=== PATIENT | male | born 1945 ===

== ENCOUNTER → 2022-02-08 13:39 | Outpatient (BNVA) | payer MEDICARE, SELFPAY | PROVIDERS: PCP Family Medicine; Referring Provider Family Medicine; Visit Provider Psychiatry & Neurology Neurology | DX: G51.4 Facial myokymia (principal); R48.2 Apraxia; R47.01 Aphasia; F01.50 Vascular dementia, unspecified severity, without behavioral disturbance, psychotic disturbance, mood disturbance, and anxiety; Z79.82 Long term (current) use of aspirin | CPT/HCPCS: 99205 ==

== ENCOUNTER 2022-02-26 01:00 | Outpatient (CLI) | payer MEDICARE, SELFPAY ==
--- NOTE | 2022-03-03 09:20 | PDOC.EEG_ITS ---
Neurology EEG EEG: [facility] Department of Neurology LONG-TERM AMBULATORY EEG REPORT Date of Recordin02/26/22 at 10:37:42 to 02/27/22 at 11:36:20 Interpreting Physician: Dr. Roro Webber PCP/Referring Provider: Dr. Parker Reason for study: Mr. Augustin is a 76 year-old man with frequent left facial twitching concerning for seizure. Current Medications: Home Medications Medication Instructions Recorded Confirmed Type citalopram 20 mg tablet 20 mg PO DAILY 11/11/21 02/08/22 History quetiapine 25 mg tablet 25 mg PO QHS tab 11/11/21 02/08/22 History amlodipine 5 mg tablet 5 mg PO DAILY tab 02/08/22 02/08/22 History aspirin 81 mg tablet,delayed 81 mg PO DAILY 02/08/22 02/08/22 History release (Adult Aspirin Regimen) levetiracetam 500 mg tablet 500 mg PO BID #60 tab 02/08/22 02/08/22 Rx METHODS: An 18-channel digitized electroencephalogram was recorded in the ambulatory setting with video. The 10/20 international system of electrode placement was used and bipolar and referential electrode montages were recorded. In addition to EEG the patient was monitored for EKG and by video. Activation procedures of photic stimulation and hyperventilation were performed if applicable. The duration of the recording was ~25 hours. DESCRIPTION OF EEG: Waking background activity: There was no obvious posterior background rhythm. There was diffuse generalized, moderate-amplitude, delta and theta polymorphic slowing. Drowsy and sleeping background activity: During drowsiness, there were vertex waves. Normal stage II and III sleep was present with symmetrical sleep spindles, K-complexes, and vertex waves with slowing of the background rhythm to delta/theta frequencies. REM sleep manifested by rapid lateral eye movements and faster background rhythms was recorded. Arousal was unremarkable. Interictal abnormalities: Diffuse generalized, moderate-amplitude, delta and theta polymorphic slowing. Ictal findings: No events reported. Activating Procedures: Photic stimulation was performed which produced no posterior driving response. Hyperventilation was not performed. EKG: EKG revealed normal sinus rhythm. INTERPRETATION: This long-term EEG is abnormal due to moderate diffuse, generalized slowing. PRIOR EEG: none CLINICAL CORRELATION: The slowing is suggestive of a moderate diffuse cerebral encephalopathy of broad differential including toxic-metabolic etiology. No focal regions of cerebral dysfunction or epileptiform activity was present. Clinical correlation is advised. Roro Webber MD
== END 2022-02-26 01:01 | disposition home or self-care (01) ==
LOC: RT 01:00
PROVIDERS: PCP Family Medicine; Visit Provider Psychiatry & Neurology Neurology
DX: R25.3 Fasciculation (principal); R40.4 Transient alteration of awareness
CPT/HCPCS: 95720